=== PATIENT | female | born 1970 | race Caucasian/White ===

== ENCOUNTER 2016-12-04 06:00 | Day surgery (SDC) | payer OTHER ==
[2016-12-04] MEDS ORDERED: Bupivacaine 0.5% 50 ML MDV ONE (06:47)
[2016-12-04] MEDS ORDERED: Povidone-Iodine 10% Soln 118.25 ML Bottle ONE (06:48)
[2016-12-04] MEDS ORDERED: Lactated Ringers 1,000 ML IV SCH (07:00)
[2016-12-04] MEDS ORDERED: ceFAZolin 1 GM in Premix Bag 1 BAG IV ONE (07:00)
[2016-12-04] MEDS ORDERED: fentaNYL 100 MCG/2 ML SDV ONE (07:14)
[2016-12-04] MEDS ORDERED: Propofol 200 MG/20 ML SDV ONE (07:14)
[2016-12-04] MEDS ORDERED: Midazolam 1 MG/ML 2 ML SDV ONE (07:14)
[2016-12-04] MEDS ORDERED: Lidocaine 0.5% 50 ML SDV ONE (07:16)
[2016-12-04] MEDS ORDERED: Ondansetron 4 MG/2 ML SDV IVPUSH ONE (08:20)
[2016-12-04] MEDS ORDERED: Acetaminophen/HYDROcodone 325-5 MG Tab PO ONE (09:10)
[2016-12-04 09:33] VITALS: BP 97/65
--- NOTE | 2016-12-04 12:41 | OR ---
DATE OF PROCEDURE: 12/04/2016 PREOPERATIVE DIAGNOSIS: Right de Quervain tenosynovitis. POSTOPERATIVE DIAGNOSIS: Right de Quervain tenosynovitis. PROCEDURE: Right wrist de Quervain tenosynovitis, first extensor compartment release. GLASS SAGGER: BALDEMAR Kessler. FLUID: Lactated Ringer solution. ESTIMATED BLOOD LOSS: Zero. COMPLICATIONS: None. SPECIMEN: None. DISCHARGE DISPOSITION: Stable to PACU. INDICATIONS: The patient is seen preoperatively in the clinic. She works here at the [employer]. She also works at [employer] for work. She had increased pain since August in her right wrist in the 1st extensor compartment. Because of the swelling, I did obtain a preoperative MRI to make sure that we had no component of neoplasm or Theodore's abscess. This did confirm the above-mentioned diagnosis. Risks and benefits of the procedure were explained to the patient. Informed consent was obtained. DETAILS OF PROCEDURE: The patient was seen preoperatively by myself and the Anesthesia Staff in the preoperative holding area where the operative site was marked. She was brought to the operative suite by Anesthesia staff where a Oatman block with conscious sedation was administered. Tourniquet was raised to 250 mmHg for the Eda block and let down after appropriate time, which was 30 minutes. The right upper extremity was prepped and draped in sterile manner. Time-out was called identifying the correct patient, correct procedure, the correct site, and antibiotics had begun with appropriate period of time. An incision was made over the 1st dorsal compartment and a transverse incision just under the skin, iris scissors were used. The sensory branch of the radial nerve was identified and protected with a Ragnell. The 1st extensor compartment was then identified and incised with a #15 blade after placing self-retaining retractors. The EPL tendon was then exteriorized using a Ragnell and then the APL was exteriorized and two slips were found and those were . There was great deal of fluid within the 1st compartment inside the sheath, which was decompressed. We then copiously irrigated with saline and closed with 3-0 nylon and applied local. The patient then waited for the appropriate period of time for the Oatman block come down, was taken to the PACU in stable condition. Chau Madrigal DO /[id number]
== END 2016-12-04 10:35 | disposition home or self-care (01) ==
LOC: JP.SDS 06:00
PROVIDERS: ATTEND Orthopaedic Surgery
DX: M65.4 Radial styloid tenosynovitis [de Quervain] (principal); Z88.2 Allergy status to sulfonamides
CPT/HCPCS: 25000; 36415; 80053; 85027; A9270; J0690; J2250; J2405; J2704; J3010; J7120

== ENCOUNTER 2017-08-19 08:37 | Emergency (ER) | payer OTHER ==
[2017-08-19 08:59] VITALS: BP 119/70
[2017-08-19] MEDS ORDERED: Ketorolac 30 MG/ML SDV IM ONE (09:09)
--- NOTE | 2017-08-19 09:17 | EDM.PDOC ---
ED HPI GENERAL MEDICAL PROBLEM - General Chief Complaint: Upper Extremity Injury/Pain Stated Complaint: RIGHT SHOULDER PAIN Time Seen by Provider: 08/19/17 09:05 Source of Information: Reports: Patient, RN Notes Reviewed History Limitations: Reports: No Limitations - History of Present Illness INITIAL COMMENTS - FREE TEXT/NARRATIVE: 47-year-old female presents to the emergency department with complaint of right shoulder pain, she awoke this morning with severe right shoulder pain rated 9 out of 10 she is unable to lift her shoulder without excruciating pain. She denies any trauma or repetitive motion Right Shoulder Pain Score (Numeric/FACES): 9 - Related Data Allergies Allergy/AdvReac Type Severity Reaction Status Date / Time Sulfa (Sulfonamide Allergy Hives Verified 08/19/17 09:01 Antibiotics) Home Meds: Home Meds Ergocalciferol (Vitamin D2) [Vitamin D2] 1 cap PO DAILY 05/11/15 [History] Multivitamin [Daily Greta] 1 each PO DAILY 12/04/16 [History] Past Medical History HEENT History: Reports: Impaired Vision Gastrointestinal History: Reports: Cholelithiasis REGULATORY SUBMISSIONS SPECIALIST History: Reports: , Other (See Below) Other OB/BYN History: metriosis Musculoskeletal History: Reports: Fracture Other Musculoskeletal History: R wrist pain - Infectious Disease History Infectious Disease History: Reports: Chicken Pox - Past Surgical History HEENT Surgical History: Reports: Other (See Below) Other HEENT Surgeries/Procedures: jaw surgery: laporoscopic GI Surgical History: Reports: Cholecystectomy, EGD Female Surgical History: Reports: Section, Hysterectomy, Tubal Ligation Musculoskeletal Surgical History: Reports: Ganglion Cyst Social & Family History - Tobacco Use Smoking Status *Q: Never Smoker - Caffeine Use Caffeine Use: Reports: None Review of Systems - Review of Systems Review Of Systems: See Below Constitutional: Reports: No Symptoms Musculoskeletal: Reports: Shoulder Pain ED EXAM, GENERAL - Physical Exam Exam: See Below Free Text/Narrative:: Examination of the right shoulder I don't appreciate any erythema there is no edema noted she is point tender over the acromium she has about 10 abduction before excruciating pain on passive movement, she will not tolerate any active movement, radial pulse is +2 and full range of motion of all digits Exam Limited By: No Limitations General Appearance: Alert, Moderate Distress Course - Vital Signs Last Recorded V/S: Last Vital Signs Temp 96.9 F 08/19/17 08:59 Pulse 78 08/19/17 08:59 Resp 16 08/19/17 08:59 BP 119/70 08/19/17 08:59 Pulse Ox 98 08/19/17 08:59 - Orders/Labs/Meds Orders: Active Orders 24 hr Category Date Time Status Shoulder Comp Rt [CR] Stat Exams 08/19/17 09:09 Taken Meds: Medications Discontinued Medications Generic Name Dose Route Start Last Admin Trade Name Suzy PRN Reason Stop Dose Admin Ketorolac Tromethamine 30 mg 08/19/17 09:09 08/19/17 09:35 Toradol IM 08/19/17 09:10 30 mg ONETIME ONE Administration Departure - Departure Time of Disposition: 10:18 Disposition: Home, Self-Care 01 Condition: Good Clinical Impression: Adhesive capsulitis of right shoulder - Discharge Information Referrals: PCP,None [Primary Care Provider] - Forms: ED Department Discharge, ED Return to Work/School Form Additional Instructions: Continue to use ibuprofen for baseline pain control, use hydrocodone for breakthrough pain, please follow-up with orthopedics at your appointment time - My Orders Last 24 Hours: My Active Orders 08/19/17 09:09 Shoulder Comp Rt [CR] Stat - Assessment/Plan Last 24 Hours: My Active Orders 08/19/17 09:09 Shoulder Comp Rt [CR] Stat Plan: Assessment Acuity = acute Site and laterality = adhesive capsulitis right shoulder Etiology = unclear etiology Manifestations = pain Location of injury = Home Lab values = shoulder x-ray I did review films myself I cannot appreciate any acute process, the official read from radiology is pending Plan She had some improvement with Toradol provided, referral was sent to orthopedics for follow-up hydrocodone 5/325 one tab by mouth 3 times a day when necessary total #10 provided for pain control This note was dictated using [employer] voice recognition software please call with any questions on syntax or grammar.
--- NOTE | 2017-08-19 10:23 | CR ---
Shoulder Comp Rt CLINICAL HISTORY: Right shoulder pain FINDINGS: There is no acute fracture or dislocation in the right shoulder. There is a calcification n ear the bicipital groove. There is some spurring at the AC joint. Humeral head position is somewhat s uperior. This may be positional Impression: No acute fracture seen The calcific tendinosis Degenerative change in the AC joint
== END 2017-08-19 10:42 | disposition home or self-care (01) ==
LOC: JP.ED 08:37
DX: M75.01 Adhesive capsulitis of right shoulder (principal); Z88.2 Allergy status to sulfonamides
CPT/HCPCS: 73030; 96372; 99284; J1885

== ENCOUNTER → 2022-03-01 | Day surgery (SDC) | payer OTHER ==
[~2022-03-01] MED LIST: Midazolam 1 MG/ML 2 ML SDV ONE; Propofol 200 MG/20 ML SDV ONE; Sodium Chloride 0.9% 1,000 ML IV SCH; fentaNYL 50 MCG/ML SDV ONE
[2022-03-01 09:47] VITALS: BP 98/62; PULSE 80
== END ==
LOC: JP.SDS 07:36
PROVIDERS: ATTEND Surgery
DX: Z12.11 Encounter for screening for malignant neoplasm of colon (principal); Z79.899 Other long term (current) drug therapy; Z88.2 Allergy status to sulfonamides; Z91.018 Allergy to other foods
CPT/HCPCS: 43239; 45385; J2250; J2704; J3010; J7030